=== PATIENT | female | born 1955 | race Caucasian/White ===

== ENCOUNTER 2017-01-12 18:26 | Emergency (ER) | payer BC ==
[2017-01-16] MEDS ORDERED: HYDROCODONE-APA1 TAB PO (10:52)
[2017-01-16] MEDS ORDERED: IBUPROFEN800 MG PO (10:52)
[2017-01-16] MEDS ORDERED: VITAMIN D31000 UNI2 PO (10:53)
[2017-01-16] MEDS ORDERED: ASCORBIC ACID500 MG PO (10:53)
[2017-01-16] MEDS ORDERED: MULTIPLE VITAMI1 TA1 PO (10:54)
[2017-01-16] MEDS ORDERED: GLUCOSAMINE & C1 CAP PO (10:54)
[2017-01-16] MEDS ORDERED: OYST-CAL-5001 TAB PO (10:54)
[2017-01-17 13:33] VITALS: BMI 22.5
== END 2017-01-12 21:15 | disposition home or self-care (01) ==
LOC: D.ER 18:26
DX: S82.831A Other fracture of upper and lower end of right fibula, initial encounter for closed fracture (principal); W19.XXXA Unspecified fall, initial encounter; Y93.89 Activity, other specified; Y92.89 Other specified places as the place of occurrence of the external cause

== ENCOUNTER 2017-01-17 10:50 | Day surgery (SDC) | payer BC, OTHER ==
[2017-01-16 12:59] LABS: HEMATOCRIT 41.4 % (36.0-48.0); HEMOGLOBIN 13.9 g/dL (12-16); MCH 32.2 pg (26.0-34.0); MCHC 33.6 g/dL (31.0-37.0); MCV 95.8 fL (80.0-100.0); MEAN PLATELET VOLUME 10.4 fL (7.4-10.4); RBC 4.32 10x6/uL (4.00-5.40); RDW 13.5 % (11.5-14.5); WBC 8.4 10x3/uL (4.8-10.8)
[~2017-01-17] VITALS: Ht 152.4 cm; Wt 52.2 kg
[~2017-01-17 10:50] MED LIST: ASCORBIC ACID500 MG PO; GLUCOSAMINE & C1 CAP PO; HYDROCODONE-APA1 TAB PO; IBUPROFEN800 MG PO; MULTIPLE VITAMI1 TA1 PO; OYST-CAL-5001 TAB PO; VITAMIN D31000 UNI2 PO
[2017-01-17 13:33] VITALS: BP 137/73; Ht 152.4 cm; Wt 52.2 kg
[2017-01-17] MEDS ORDERED: HYDROCODONE-APA1 TAB PO (15:18)
--- NOTE | 2017-01-17 18:45 | NUR ---
1645 IV DC WITH CATHER TIP INTACT
--- NOTE | 2017-01-21 09:22 | OP ---
PATIENT NAME: JUVE ALLEN MEDICAL RECORD: [id number] :57 LOCATION:D.OPS ADMISSION DATE: SURGEON: CLIFF PEÑA MD DATE OF OPERATION: 01/17/2017 PREOPERATIVE DIAGNOSIS: Displaced fracture of the lateral malleolus of the right ankle. POSTOPERATIVE DIAGNOSIS: Displaced fracture of the lateral malleolus of the right ankle. PROCEDURE: Open reduction internal fixation of displaced fracture of the lateral malleolus of the right ankle. SURGEON: Cliff Peña MD. ANESTHESIA: General. INTRAOPERATIVE COMPLICATIONS: None. SUMMARY OF PATHOLOGIC FINDINGS: The patient has displaced lateral malleolus fracture with a long oblique extension. OPERATIVE SUMMARY IN DETAIL: After obtaining the appropriate preoperative orthopedic surgery consent, as well as anesthetic consultation, evaluation and clearance, the patient was brought to the operating room and placed on the operating table in supine position. After general laryngeal mask was administered, a tourniquet was placed at the proximal aspect of the right lower extremity. Right lower extremity was then prepped and draped in a routine sterile fashion. Leg was elevated, exsanguinated and tourniquet was inflated to 350 mmHg. A lateral incision made directly over the fibula, taken down to the periosteum, and the fracture was then cleared of all fracture hematoma. Reduction maneuver was performed and held in place with a reduction forceps while a Allie VariAx plate was applied. Serial and sequential drill and fill was done with a combination of both compression and locking screws under fluoroscopic guidance. After the plate was well affixed, AP and lateral, as well as mortise views were taken and submitted for radiology review. The wound was copiously irrigated and closed with 2-0 Vicryl followed by skin nimisha. Sterile dressings were applied. Tourniquet was deflated and a posterior L&U splint was applied. The patient was awakened and taken to the recovery room in stable condition. All final needle and sponge counts were correct. TRANSINT:[id number] Voice Confirmation ID: [id number] DOCUMENT ID: [id number] CLIFF PEÑA MD at 0922 CC: [id number] DICTATION DATE: 01/17/17 1522 SWAGE TENDER: 01/18/17 0047 [facility] 01/17/17 [facility] [address] [place] [address]
== END 2017-01-17 17:00 | disposition home or self-care (01) ==
LOC: D.OPS 10:50 → D.PAN 12:15 → D.OPS 12:45 → D.PAN 15:00 → D.OPS 15:00 → D.PAN 15:10 → D.OPS 15:10
PROVIDERS: Anesthesiology
DX: S82.61XA Displaced fracture of lateral malleolus of right fibula, initial encounter for closed fracture (principal); X58.XXXA Exposure to other specified factors, initial encounter; Z01.812 Encounter for preprocedural laboratory examination

== ENCOUNTER 2017-07-05 11:19 | Emergency (ER) | payer BC, OTHER ==
[2017-01-17 13:33] VITALS: BMI 22.5
[2017-07-05 12:07] LABS: BASOPHILS 0.2 % (0-2); EOSINOPHILS 0.7 % (0-7); HEMATOCRIT 42.1 % (36.0-48.0); HEMOGLOBIN 14.2 g/dL (12-16); IMMATURE GRANULOCYTES 0.2 % (0-5); LYMPHOCYTES 21.2 % (15-50); MCH 31.8 pg (26.0-34.0); MCHC 33.7 g/dL (31.0-37.0); MCV 94.4 fL (80.0-100.0); MEAN PLATELET VOLUME 9.9 fL (7.4-10.4); MONOCYTES 9.1 % (2-11); NEUTROPHILS 68.6 % (40-80); PLATELET COUNT 329 10x3/uL (130-400); RBC 4.46 10x6/uL (4.00-5.40); RDW 13.1 % (11.5-14.5); WBC 8.7 10x3/uL (4.8-10.8)
[2017-07-05 12:33] LABS: ALBUMIN 3.6 g/dL (3.4-5.0); ALKALINE PHOSPHATASE 71 U/L (46-116); ALT (SGPT) 23 U/L (10-68); BILIRUBIN - TOTAL 0.42 mg/dL (0.2-1.3); CALC OSMOLALITY 275 mosm/kg (275-300); CALCIUM 8.8 mg/dL (8.5-10.1); CARBON DIOXIDE 25.7 mmol/L (21.0-32.0); CHLORIDE - SERUM 103 mmol/L (98-107); CREATININE - SERUM 0.7 mg/dL (0.6-1.3); GLUCOSE 107 mg/dL (74-106); POTASSIUM - SERUM 3.6 mmol/L (3.5-5.1); SODIUM 137 mmol/L (136-145); UREA NITROGEN 19 mg/dL (7-18); eGFR NON AFRICAN AMERICAN 90 mL/min (90-120)
== END 2017-07-05 13:00 | disposition home or self-care (01) ==
LOC: D.ER 11:19
PROVIDERS: Family Medicine
DX: R51 Headache (principal)

== ENCOUNTER → 2017-09-12 17:05 | Outpatient (CLI) | payer BC, OTHER ==
[2017-01-17 13:33] VITALS: BMI 22.5
== END | disposition home or self-care (01) ==
LOC: D.MAMMO 08-19 11:00
DX: Z12.31 Encounter for screening mammogram for malignant neoplasm of breast (principal)

== ENCOUNTER → 2018-09-24 17:42 | Outpatient (CLI) | payer BC ==
[2017-01-17 13:33] VITALS: BMI 22.5
== END | disposition home or self-care (01) ==
LOC: D.MAMMO 15:45
DX: Z12.31 Encounter for screening mammogram for malignant neoplasm of breast (principal)